=== PATIENT | male | born 2000 | race Hispanic/Latino ===

== ENCOUNTER 2024-08-13 16:45 | Emergency (ER) | payer SELFPAY ==
[2024-08-13 16:47] VITALS: BP 130/84
--- NOTE | 2024-08-13 17:56 | ED.GENMED ---
History of Present Illness
General
Chief Complaint: Musculo-Skeletal Complaint
Source: patient
Exam Limitations: none
Time Seen by Provider: 08/13/24 17:10
Nursing documentation reviewed up to this point in time: agreed with
History of Present Illness
History of Present Illness:
23-year-old male presenting to the emergency department today with concerns of right-sided shoulder discomfort after landing awkwardly on his right shoulder while playing soccer prior to arrival. No additional injuries no head trauma no neck pain
or weakness.
Review of Systems
Review of Systems
Allergies reviewed?: Yes
All Other Systems: ROS reviewed and negative except as documented in HPI and ROS
Phy Exam
Physical Exam
Physical Exam:
GENERAL: Alert , in no apparent distress
EYE: pupils equal and reactive
NECK: Supple, no significant adenopathy.
ENT: o/p clr, mmm.
CARDIAC: Regular rate and rhythm .
LUNGS: Clear breath sounds bilaterally, no acute respiratory distress, no wheezes/rales/rhonchi
ABDOMEN: Soft, without focal tenderness, no r/g, no cvat
NEUROLOGICAL: Alert and oriented, no focal neuro deficits
SKIN: Warm and dry, skin intact.
MUSCULOSKELETAL: Pain to the middle portion of the right clavicle otherwise no tenderness throughout the remainder of the upper extremities bilaterally. Good distal pulses. No edema, well perfused.
PSYCH: Normal and appropriate interaction.
Course
Orders/Labs/Results
Orders:
Orders
08/13/24 16:46
CR Clavicle - Right Complete Urgent
Comment:
Reason For Exam: injury/pain
Vital Signs
Initial and Last Documented VS:
Initial Vital Signs
Temp Pulse Resp BP Pulse Ox
98.8 F 93 18 130/84 99
08/13/24 16:47 08/13/24 16:47 08/13/24 16:47 08/13/24 16:47 08/13/24 16:47
Last Documented Vital Signs
Temp Pulse Resp BP Pulse Ox
98.8 F 93 18 130/84 99
08/13/24 16:47 08/13/24 16:47 08/13/24 16:47 08/13/24 16:47 08/13/24 16:47
MDM/Problems Addressed
MDM/Problems Addressed:
23-year-old male presenting to the emergency department today with concerns of right sided clavicle discomfort after falling awkwardly playing soccer earlier today. Neuro vastly intact x-ray showing clavicle fracture no additional injuries.
Patient was placed in a sling and will follow-up closely with orthopedics. Return precautions given.
*Critical Care Note
Total Time (30-74mins, 75-104mins- exclusive of procedures): Not Applicable
ED Attending Note
-
Portions of this chart may have been created with voice recognition software.� Occasional wrong word or��sound alike� substitutions may have occurred due to the inherent limitations of voice recognition software.
Discharge Plan
Departure
Patient Disposition: Home (Routine Discharge)
Date of Disposition: 08/13/24
Time of Disposition: 17:59
Patient with high blood pressure during this ER visit?: No
Condition: Good
Covid-19: Not Applicable
Discharge Problem:
Fracture of right clavicle
Instructions: Clavicle fracture
Referrals:
Charan Perez MD [Active] - Follow up in 5-7 days
NONE,* [Family Provider] -
Activity Restrictions/Additional Instructions:
You came to the emergency department today with concerns of right-sided shoulder discomfort. You are found to have a clavicle fracture. Please have close with orthopedics. Return to the emergency department for any worsening, new or concerning
symptoms.
Interventions
Interventions:
*Risk Screen - Suicide Last Done: 08/13/24 16:47
*General Assessment Last Done: 08/13/24 16:47
*Neglect/Abuse Screening Last Done: 08/13/24 16:47
ED-Musculoskeletal Assessment Last Done: 08/13/24 17:18
Discharge Date and Time
Print Language: GUATEMAL[place]
[2024-08-13] MEDS: TYLENOL 1000 MG PO (18:18)
[2024-08-13] MEDS: MOTRIN 600 MG PO (18:19)
[2024-08-13 18:27] VITALS: BP 138/84
[2024-08-13 18:29] VITALS: BP 138/84
== END 2024-08-13 18:32 | disposition home or self-care (01) ==
LOC: EMR 16:45
PROVIDERS: EMERGENCY PHYSICIAN Emergency Medicine
DX: S42.021A Displaced fracture of shaft of right clavicle, initial encounter for closed fracture (principal); W19.XXXA Unspecified fall, initial encounter
CPT/HCPCS: 99283; 73000